=== PATIENT | male | born 1980 | race American Indian/Alaskan Native ===

== ENCOUNTER 2018-05-28 18:16 | Emergency (ER) | payer SELFPAY ==
[2018-05-28 18:33] VITALS: BP 129/80
== END 2018-05-28 18:28 | disposition left against medical advice (07) ==
LOC: ED 18:16
DX: R07.9 Chest pain, unspecified (principal); Z53.21 Procedure and treatment not carried out due to patient leaving prior to being seen by health care provider
CPT/HCPCS: 93005; 93010

== ENCOUNTER 2019-05-22 05:10 | Emergency (ER) | payer SELFPAY ==
[2019-05-22 05:20] VITALS: BP 116/82
[2019-05-22 05:46] LABS: Basophils # (Auto) 0.1 K/mm3 (0.0-0.1); Basophils % (Auto) 1.6 % (0.0-1.8); Eosinophils # (Auto) 0.1 K/mm3 (0.0-0.4); Eosinophils % (Auto) 1.3 % (0.0-4.3); Hematocrit 43.7 % (35.5-45.6); Lymphocytes # (Auto) 2.1 K/mm3 (1.2-5.4); Lymphocytes % (Auto) 31.6 % (13.4-35.0); Mean Corpuscular HGB Conc 34 % (32-34); Mean Corpuscular Volume 94 fl (84-94); Monocytes # (Auto) 0.9 K/mm3 (0.0-0.8); Monocytes % (Auto) 13.6 % (0.0-7.3); Platelet Count 203 K/mm3 (140-440); Red Blood Count 4.63 M/mm3 (3.65-5.03)
[2019-05-22 06:13] LABS: Alanine Aminotransferase 10 units/L (7-56); Albumin 4.2 g/dL (3.9-5); BUN/Creatinine Ratio 18; Blood Urea Nitrogen 18 mg/dL (9-20); Calcium 9.5 mg/dL (8.4-10.2); Hemolysis Index 9
[2019-05-22 07:54] LABS: Bilirubin,Urine NEG (Negative); Blood,Urine NEG (Negative); Color,Urine Yellow (Yellow); Protein,Urine <15 mg/dL mg/dL (Negative); Urobilinogen,Urine < 2.0 mg/dL (<2.0); WBC,Urine < 1.0 /HPF (0.0-6.0)
[2019-05-22] MEDS ORDERED: ZOFRAN ODT PO ONE (08:22)
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
[2019-05-22] MEDS ORDERED: BENTYL PO ONE (09:00)
== END 2019-05-22 09:44 | disposition home or self-care (01) ==
LOC: ED 05:10
DX: K29.00 Acute gastritis without bleeding (principal); F17.200 Nicotine dependence, unspecified, uncomplicated
CPT/HCPCS: 36415; 80053; 81001; 83690; 85025; 99283; Q0162

== ENCOUNTER 2019-08-30 15:23 | Emergency (ER) | payer SELFPAY ==
[2019-08-30 16:05] VITALS: BP 113/78
[2019-08-30] MEDS ORDERED: ZOFRAN ODT PO/SL ONE (16:06)
--- NOTE | 2019-08-30 16:06 | Emergency Department Report ---
Blank Doc - Documentation Documentation: c/o sudden onset of headache, nasuea vomiting x6, diffuse abdominal pain, dizz iness, his initial assessment/diagnostic orders/clinical plan/treatment(s) is/are subject to change based on patient's health status, clinical progression and re- assessment by fellow clinical providers in the ED. Further treatment and workup at subsequent clinical providers discretion. Patient/guardians urged not to elope from the ED as their condition may be serious if not clinically assessed and managed. Initial orders include: Plan labs and zofran
[2019-08-30 16:50] LABS: Basophils # (Auto) 0.1 K/mm3 (0.0-0.1); Basophils % (Auto) 1.6 % (0.0-1.8); Eosinophils # (Auto) 0.1 K/mm3 (0.0-0.4); Eosinophils % (Auto) 0.8 % (0.0-4.3); Hematocrit 45.9 % (35.5-45.6); Hemoglobin 15.3 gm/dl (11.8-15.2); Lymphocytes # (Auto) 1.3 K/mm3 (1.2-5.4); Lymphocytes % (Auto) 17.5 % (13.4-35.0); Mean Corpuscular HGB Conc 33 % (32-34); Mean Corpuscular Volume 97 fl (84-94); Monocytes # (Auto) 0.6 K/mm3 (0.0-0.8); Monocytes % (Auto) 8.2 % (0.0-7.3); Platelet Count 208 K/mm3 (140-440); Red Blood Count 4.74 M/mm3 (3.65-5.03); Red Cell Distribution Width 14.4 % (13.2-15.2)
[2019-08-30 17:06] LABS: Alanine Aminotransferase 13 units/L (7-56); Albumin 3.9 g/dL (3.9-5); BUN/Creatinine Ratio 9; Bilirubin,Direct 0.2 mg/dL (0-0.2); Blood Urea Nitrogen 10 mg/dL (9-20); Calcium 9.5 mg/dL (8.4-10.2); Hemolysis Index 7
--- NOTE | 2019-08-30 19:08 | ED Elopement Review ---
ED Pt Elopement review - Results review Lab results: Laboratory Tests 08/30/19 08/30/19 16:17 16:17 WBC 7.7 RBC 4.74 Hgb 15.3 H Hct 45.9 H MCV 97 H MCH 32 MCHC 33 RDW 14.4 Plt Count 208 Lymph % (Auto) 17.5 [place] % (Auto) 8.2 H Eos % (Auto) 0.8 Baso % (Auto) 1.6 Lymph # 1.3 [place] # 0.6 Eos # 0.1 Baso # 0.1 Seg Neutrophils % 71.9 H Seg Neutrophils # 5.5 Sodium 142 Potassium 4.3 Chloride 103.7 Carbon Dioxide 29 Anion Gap 14 BUN 10 Creatinine 1.1 Estimated GFR > 60 BUN/Creatinine Ratio 9 Glucose 88 Calcium 9.5 Total Bilirubin 1.20 Direct Bilirubin 0.2 Indirect Bilirubin 1.0 AST 22 ALT 13 Alkaline Phosphatase 64 Total Protein 6.3 Albumin 3.9 Albumin/Globulin Ratio 1.6 Lipase 13 - Call Back decision Pt Call Back Decision: No action required
== END 2019-08-30 18:55 | disposition left against medical advice (07) ==
LOC: ED 15:23
DX: R07.9 Chest pain, unspecified (principal); Z53.21 Procedure and treatment not carried out due to patient leaving prior to being seen by health care provider
CPT/HCPCS: 36415; 80048; 80076; 83690; 85025; Q0162

== ENCOUNTER 2020-01-13 09:53 | Emergency (ER) | payer SELFPAY ==
[2020-01-13 10:08] VITALS: BP 122/86
--- NOTE | 2020-01-13 10:30 | XRay Report ---
CHEST 1 VIEW 10:21 AM INDICATION / CLINICAL INFORMATION: Chest Pain. Cough and congestion for 3 days. COMPARISON: None available. FINDINGS: SUPPORT DEVICES: None. HEART / MEDIASTINUM: The heart size and pulmonary vasculature are normal. The aorta is normal in cathleen mynor. LUNGS / PLEURA: No significant pulmonary or pleural abnormality. No pneumothorax. ADDITIONAL FINDINGS: No significant additional findings. IMPRESSION: No acute findings. Signer Name: Delroy Barrera MD Signed: 01/13/2020 10:26 AM Workstation Name: [id number]
[2020-01-13 11:00] LABS: Basophils # (Auto) 0.1 K/mm3 (0.0-0.1); Basophils % (Auto) 1.4 % (0.0-1.8); Eosinophils # (Auto) 0.1 K/mm3 (0.0-0.4); Eosinophils % (Auto) 1.8 % (0.0-4.3); Hematocrit 43.1 % (35.5-45.6); Hemoglobin 14.4 gm/dl (11.8-15.2); Lymphocytes # (Auto) 2.4 K/mm3 (1.2-5.4); Mean Corpuscular HGB Conc 34 % (32-34); Mean Corpuscular Volume 93 fl (84-94); Monocytes # (Auto) 0.8 K/mm3 (0.0-0.8); Monocytes % (Auto) 12.6 % (0.0-7.3); Platelet Count 214 K/mm3 (140-440); Red Blood Count 4.62 M/mm3 (3.65-5.03); Red Cell Distribution Width 13.8 % (13.2-15.2)
[2020-01-13 12:01] LABS: BUN/Creatinine Ratio 8; Blood Urea Nitrogen 11 mg/dL (9-20); Hemolysis Index 8
== END 2020-01-13 15:51 | disposition left against medical advice (07) ==
LOC: ED 09:53
DX: R07.89 Other chest pain (principal); Z53.21 Procedure and treatment not carried out due to patient leaving prior to being seen by health care provider
CPT/HCPCS: 36415; 71045; 80048; 84484; 85025; 93005; 93010

== ENCOUNTER 2020-11-30 03:30 | Emergency (ER) | payer SELFPAY ==
[2020-11-30] MEDS ORDERED: ONDANSETRON 4 MG/2 ML INJ IV ONE (05:28)
[2020-11-30] MEDS ORDERED: SODIUM CHLORIDE 0.9% 1000 ML 1,000 ML IV ONE (05:28)
--- NOTE | 2020-11-30 05:31 | Event Note ---
ED Screening Note Date of service: 11/30/20 Time: 05:29 ED Screening Note: This initial assessment/diagnostic orders/clinical plan/treatment(s) is/are subject to change based on patients health status, clinical progression and re- assessment by fellow clinical providers in the ED. Further treatment and workup at subsequent clinical providers discretion. Patient/guardian urged not to elope from the ED as their condition may be serious if not clinically assessed and managed. Initial orders include: This is a 40-year-old male is complaining of chest pain generalized body aches fatigue and just not feeling well. His symptoms started tonight. He admits to drinking alcohol, states he only had 1 shot of alcohol he denies any drug use. 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 Labs EKG chest x-ray IV fluids Zofran ordered patient in no acute distress
[2020-11-30 06:13] LABS: Hematocrit 47.1 % (35.5-45.6); Mean Corpuscular HGB Conc 34 % (32-34); Mean Corpuscular Volume 95 fl (84-94); Platelet Count 209 K/mm3 (140-440); Red Blood Count 4.93 M/mm3 (3.65-5.03); Red Cell Distribution Width 13.4 % (13.2-15.2)
--- NOTE | 2020-11-30 06:15 | XRay Report ---
CHEST 2 VIEWS INDICATION / CLINICAL INFORMATION: CHEST PAIN. COMPARISON: 01/13/2020 FINDINGS: SUPPORT DEVICES: None. HEART / MEDIASTINUM: No significant abnormality. LUNGS / PLEURA: No significant pulmonary or pleural abnormality. No pneumothorax. ADDITIONAL FINDINGS: No significant additional findings. IMPRESSION: 1. No acute findings. Signer Name: Gopi Palafox MD Signed: 11/30/2020 6:10 AM Workstation Name: [id number]
[2020-11-30 06:31] LABS: Alanine Aminotransferase 9 units/L (7-56); Albumin 4.5 g/dL (3.9-5); BUN/Creatinine Ratio 11; Blood Urea Nitrogen 12 mg/dL (9-20); Calcium 9.8 mg/dL (8.4-10.2); Hemolysis Index 9
== END 2020-11-30 07:00 | disposition left against medical advice (07) ==
LOC: ED 03:30
DX: R07.89 Other chest pain (principal); R53.83 Other fatigue; Z53.21 Procedure and treatment not carried out due to patient leaving prior to being seen by health care provider
CPT/HCPCS: 36415; 71046; 80053; 82550; 83690; 85027; 93005